=== PATIENT | male | born 1970 | race African-American/Black ===

== ENCOUNTER 2016-08-30 04:32 | Emergency (ER) | payer SELFPAY ==
[~2016-08-30] VITALS: Ht 175.3 cm; Wt 82.3 kg
[2016-08-30] MEDS ORDERED: MEDROL DOSEPAK4 MG PO (05:26)
[2016-08-30] MEDS ORDERED: PERCOCET 5/31 TABLET PO (05:26)
[2016-08-30] MEDS ORDERED: VALIUM5 MG PO (05:26)
[2016-08-30 05:59] VITALS: BP 114/65
== END 2016-08-30 06:00 | disposition home or self-care (01) ==
LOC: EME 04:32
DX: S39.012A Strain of muscle, fascia and tendon of lower back, initial encounter (principal); M79.652 Pain in left thigh; X50.9XXA Other and unspecified overexertion or strenuous movements or postures, initial encounter; Y93.B9 Activity, other involving muscle strengthening exercises; Y92.39 Other specified sports and athletic area as the place of occurrence of the external cause
CPT/HCPCS: J1885